=== PATIENT | female | born 1950 ===

== ENCOUNTER 2025-03-04 07:41 | Outpatient (RCR) | payer OTHER, SELFPAY | END 2025-03-04 23:59 | disposition home or self-care (01) | LOC: RST 07:41 | PROVIDERS: ATTENDING PHYSICIAN Nurse Practitioner; FAMILY PHYSICIAN Internal Medicine | DX: G31.84 Mild cognitive impairment of uncertain or unknown etiology (principal); R41.89 Other symptoms and signs involving cognitive functions and awareness; R41.841 Cognitive communication deficit; G30.9 Alzheimer's disease, unspecified; F02.80 Dementia in other diseases classified elsewhere, unspecified severity, without behavioral disturbance, psychotic disturbance, mood disturbance, and anxiety | CPT/HCPCS: 96125; 97129; 97130 ==

== ENCOUNTER 2025-04-13 11:06 | Outpatient (RCR) | payer OTHER, SELFPAY | END 2025-04-13 23:59 | disposition home or self-care (01) | LOC: RST 11:06 | PROVIDERS: ATTENDING PHYSICIAN Nurse Practitioner; FAMILY PHYSICIAN Internal Medicine | DX: G31.84 Mild cognitive impairment of uncertain or unknown etiology (principal); R41.89 Other symptoms and signs involving cognitive functions and awareness; R41.841 Cognitive communication deficit; G30.9 Alzheimer's disease, unspecified; F02.80 Dementia in other diseases classified elsewhere, unspecified severity, without behavioral disturbance, psychotic disturbance, mood disturbance, and anxiety | CPT/HCPCS: 97129; 97130 ==